=== PATIENT | female | born 2000 | race Caucasian/White ===

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

== ENCOUNTER 2019-02-23 19:46 | Emergency (ER) | payer OTHER ==
[~2019-02-23] VITALS: Ht 157.5 cm; Wt 71.2 kg
[2019-02-23 20:10] VITALS: BP 113/71; Ht 157.5 cm; Wt 71.2 kg
== END 2019-02-23 23:24 | disposition left against medical advice (07) ==
LOC: ED 19:46
DX: Z53.21 Procedure and treatment not carried out due to patient leaving prior to being seen by health care provider (principal)